=== PATIENT | female | born 1935 | race Two or more races ===

== ENCOUNTER 2017-05-20 20:17 | Inpatient (IN) | payer MEDICARE, BC ==
[~2017-05-20] VITALS: Ht 157.5 cm; Wt 56.7 kg
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
--- NOTE | 2017-05-20 20:27 | NUR ---
NEETU HEAD DOFFER AT BEDSIDE FOR EVAL.
--- NOTE | 2017-05-20 20:40 | NUR ---
GRINDER WATCH PARTS AT BEDSIDE FOR BLOOD DRAW.
[2017-05-20 21:13] LABS: CALCIUM, SERUM 9.6 mg/dL (8.5-10.1); CARBON DIOXIDE 28 mmol/L (21-32); CHLORIDE 113 mmol/L (98-107); CREATININE 1.1 mg/dL (0.6-1.3); GLUCOSE 109 mg/dL (74-106); POTASSIUM 4.1 mmol/L (3.5-5.1); SODIUM SERUM 150 mmol/L (136-145); UREA NITROGEN, BLOOD 20 mg/dL (7-18)
[2017-05-20 21:18] LABS: BASOPHILS # (AUTO) 0.1 /CMM (0.0-0.2); BASOPHILS % (AUTO) 2.5 % (0.0-2.0); EOSINOPHILS # (AUTO) 0.1 /CMM (0.0-0.7); EOSINOPHILS % (AUTO) 2.1 % (0.0-6.0); HEMATOCRIT 35 % (33-45); HEMOGLOBIN 11.2 g/dL (11.5-14.8); LYMPHOCYTES % (AUTO) 22.6 % (20.0-44.0); MEAN CORPUSCULAR HEMOGLOBIN 29 PG (26.0-33.0); MEAN CORPUSCULAR HGB CONC 32 g/dl (31.0-36.0); MEAN CORPUSCULAR VOLUME 89 fL (82-100); MONOCYTES # (AUTO) 0.4 /CMM (0.1-1.30); MONOCYTES % (AUTO) 9.5 % (2.0-12.0); NEUTROPHILS # (AUTO) 2.9 /CMM (1.8-8.9); NEUTROPHILS % (AUTO) 63.3 % (43.0-81.0); PLATELET COUNT (AUTO) 300 /CMM (150-450); RDW COEFFICIENT OF VARIATION 14.1 (11.5-15.0); WHITE BLOOD COUNT (AUTO) 4.5 K/uL (4.3-11.0)
--- NOTE | 2017-05-20 21:27 | NUR ---
CALLED STEVE CLINICIAN FOR EVAL. ETA 45 MINUTES
[2017-05-20 21:47] LABS: APPEARANCE,URINE CLEAR (CLEAR); BILIRUBIN,URINE NEGATIVE (NEGATIVE); BLOOD, URINE NEGATIVE Ery/uL (NEGATIVE); COLOR,URINE YELLOW (YELLOW); KETONES,URINE TRACE (NEGATIVE); LEUKOCYTE ESTERASE ,URINE NEGATIVE (NEGATIVE); NITRITE, URINE NEGATIVE (NEGATIVE); PH,URINE 5.5 (5.0-8.0); PROTEIN,URINE TRACE mg/dl (NEGATIVE); UGLUCOSE NEGATIVE (NEGATIVE); UROBILINOGEN,URINE 0.2 EU/dL (0.2)
[2017-05-20 21:51] LABS: ALCOHOL, BLOOD < 3 mg/dL (0-0); THYROID STIMULATING HORMONE 1.057 uIU/mL (0.358-3.74)
[2017-05-20 22:05] LABS: BACTERIA,URINE Rare /HPF (None Seen); RBC,URINE 0-2 /HPF (0-2); SQUAMOUS EPITHELIAL CELL,UR Few /HPF (None Seen); WBC,URINE 0-2 /HPF (0-3)
[2017-05-20] MEDS ORDERED: RISP1TAB7 PO (23:46)
[2017-05-20] MEDS ORDERED: QUET50TA PO (23:46)
--- NOTE | 2017-05-20 23:50 | NUR ---
REPORT GIVEN TO YOLY. PT AWAITING TRANSFER TO FLOOR.
[2017-05-21 01:00] VITALS: BP 134/79
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
[2017-05-21 08:00] VITALS: BP 149/94
[2017-05-21 08:12] LABS: CHOLESTEROL 165 mg/dL (<200); HDL CHOLESTEROL 69 mg/dL (40-60); LDL 90 mg/dL (0-99); TRIGLYCERIDES 65 mg/dL (30-150)
[2017-05-21] MEDS ORDERED: MAG HYDROX/AL HYDROX/SIMETH 30 ML UDC PO PRN (08:30)
[2017-05-21] MEDS ORDERED: ACETAMINOPHEN 325 MG TABLET PO PRN (08:30)
[2017-05-21] MEDS ORDERED: MAGNESIUM HYDROXIDE 30 ML UDC PO PRN (08:30)
[2017-05-21] MEDS ORDERED: TEMAZEPAM 7.5 MG CAPSULE PO PRN (08:30)
[2017-05-21] MEDS ORDERED: LORAZEPAM 0.5 MG TABLET PO PRN (08:30)
[2017-05-21] MEDS: QUETIAPINE FUMARATE 25 MG TABLET PO SCH ×2 (11:30→16:54)
--- NOTE | 2017-05-21 13:33 | NUR ---
GPS RN NOTES/ PATIENT REFUSED SEROQUEL PRESCRIBED TO BE TAKEN, EXPLAINED IMPORTANT OF TAKING AND GIVEN HAND OUT, CONTINUED MONITORING.
[2017-05-21 16:15] VITALS: BP 131/76
[2017-05-21 20:30] VITALS: BP 128/73
[2017-05-22 08:00] VITALS: BP 133/83
[2017-05-22] MEDS: QUETIAPINE FUMARATE 25 MG TABLET PO SCH ×3 (09:00→17:00)
[2017-05-22 16:00] VITALS: BP 140/80
[2017-05-22 21:01] VITALS: BP 142/87
--- NOTE | 2017-05-23 07:08 | NUR ---
pt is awake,no s/s of acute distress noted.pt slept 8 hours throughout NOC shift.
[2017-05-23 08:00] VITALS: BP 137/91
[2017-05-23] MEDS: QUETIAPINE FUMARATE 25 MG TABLET PO SCH ×2 (08:44→17:00)
[2017-05-23 16:00] VITALS: BP 146/91
[2017-05-23 20:24] VITALS: BP 121/79
[2017-05-24 07:04] LABS: BASOPHILS % (AUTO) 0.7 % (0.0-2.0); EOSINOPHILS # (AUTO) 0.2 /CMM (0.0-0.7); EOSINOPHILS % (AUTO) 5.7 % (0.0-6.0); HEMATOCRIT 39 % (33-45); HEMOGLOBIN 12.8 g/dL (11.5-14.8); LYMPHOCYTES # (AUTO) 1.4 /CMM (0.8-4.8); MEAN CORPUSCULAR HEMOGLOBIN 29 PG (26.0-33.0); MEAN CORPUSCULAR HGB CONC 33 g/dl (31.0-36.0); MEAN CORPUSCULAR VOLUME 88 fL (82-100); MONOCYTES # (AUTO) 0.4 /CMM (0.1-1.30); MONOCYTES % (AUTO) 14.2 % (2.0-12.0); NEUTROPHILS % (AUTO) 34.4 % (43.0-81.0); PLATELET COUNT (AUTO) 282 /CMM (150-450); RDW COEFFICIENT OF VARIATION 15.2 (11.5-15.0); RED BLOOD CELL COUNT(AUTO) 4.49 MIL/uL (4.0-5.2)
[2017-05-24 07:20] LABS: CALCIUM, SERUM 9.3 mg/dL (8.5-10.1); CARBON DIOXIDE 28 mmol/L (21-32); CHLORIDE 106 mmol/L (98-107); CREATININE 0.9 mg/dL (0.6-1.3); GLUCOSE 94 mg/dL (74-106); PHOSPHORUS 3.3 mg/dL (2.5-4.9); POTASSIUM 3.9 mmol/L (3.5-5.1); SODIUM SERUM 142 mmol/L (136-145); UREA NITROGEN, BLOOD 16 mg/dL (7-18)
[2017-05-24 07:28] LABS: THYROID STIMULATING HORMONE 1.615 uIU/mL (0.358-3.74)
[2017-05-24 08:00] VITALS: BP 149/82
[2017-05-24] MEDS: QUETIAPINE FUMARATE 25 MG TABLET PO SCH ×2 (09:00→15:57)
--- NOTE | 2017-05-24 15:19 | NUR ---
Initial Discharge Note: Patient she lives home alone [address] [place] [address] ([phone]). picking table worker spoke to patient's daughter Mela sanford ([phone]/ [phone]) who confirmed that patient was living at home alone. However, patient's daughter stated that she would like patient to live with her or go to an assisted living. picking table worker will help form a safe and proper discharge.
--- NOTE | 2017-05-24 15:57 | NUR ---
Group Note: Patient in group stated, "I want to go home, I don;t know why I have to stay in here." Patient was irritable but was participating in group and asking several questions regarding her discharge plan. Patient remains irritable but was able to understand that she could not leave today and that the psychiatrist will decide whenshe is ready for discharge. smooth and burr worker composites will continue to discuss discharge planning with the patient and will discuss her mood with the psychiatrist.
[2017-05-24 16:21] VITALS: BP 137/86
[2017-05-24 20:00] VITALS: BP 138/65
[2017-05-24 20:42] VITALS: BP 138/65
[2017-05-25 08:00] VITALS: BP 126/80
[2017-05-25] MEDS: QUETIAPINE FUMARATE 25 MG TABLET PO SCH ×2 (08:07→17:03)
--- NOTE | 2017-05-25 13:50 | NUR ---
called down for patient for ct, nurse will call when ready
[2017-05-25 16:00] VITALS: BP 152/73
[2017-05-25 20:00] VITALS: BP 136/80
[2017-05-25] MEDS: DONEPEZIL 5 MG TABLET PO SCH (21:52)
[2017-05-26 08:00] VITALS: BP 148/88
[2017-05-26] MEDS: QUETIAPINE FUMARATE 25 MG TABLET PO SCH ×2 (08:52→16:48)
--- NOTE | 2017-05-26 12:36 | NUR ---
suction worker spoke to patient's daughter Mela sanford ([phone]/ [phone]) to inform her that patient will be discharged tomorrow. Patient's daughter was unhappy and stated that she had spoken to her automatic coil machine operator who suggested patient be conserved. suction worker suggested to Mela that if she is concerned about patient's finances she can pursue a probate conservatorship upon patient's discharge. Patient's daughter stated that it is negligence to discharge patient after a few days. suction worker informed patient's daughter that patient no longer meets criteria to be in the geriatric pysch unit and assigned psychiatrist Dr. Harris believes patient is ready for discharge and should be picked up tomorrow. suction worker discussed case with utility mechanic supervisor Poly Scott ext. [phone].
--- NOTE | 2017-05-26 14:19 | NUR ---
carry in worker spoke to patient's daughter Mela sanford ([phone]/ [phone]) who appeared more calm and agreeable with the discharge plan. Mela stated that she would pick- up patient tomorrow at 6:00Pm. carry in worker provided Mela with the phone number to [facility] ([phone]).
--- NOTE | 2017-05-26 14:22 | NUR ---
rattan worker spoke to patient regarding placement (SNF or Assisted Living Facility) patient stated that she could not make that decision right now and would think about it in the future. rattan worker will follow-up with family.
[2017-05-26 16:05] VITALS: BP 135/90
--- NOTE | 2017-05-26 16:28 | NUR ---
Dischrge Note: Patient scheduled to be discharged tomorrow 05/26/17 and will be discharged home [address] [place] [address]. Patients daughter Mela Tanner ([phone]/ [phone]) was notified and will pick-up patient via private vehicle. Patient and patient's daughter were agreeable with the discharge plan. Patient's mood and affect are calm and appropriate. Patient denies suicidal and homicidal ideations. Patient was referred to the [facility] Department of mental health ([phone]). workers' compensation claims examiner also provided patient's daughter with the contact number to [facility] Helpline ([phone]). Facilitated info to IDT team who are in agreement with discharge arrangement. The multidisciplinary exitcare form was done, printed, signed, and given to the patient.
[2017-05-26 20:00] VITALS: BP 148/86
[2017-05-26] MEDS: DONEPEZIL 5 MG TABLET PO SCH (21:46)
[2017-05-27 08:00] VITALS: BP 149/91
--- NOTE | 2017-05-27 08:39 | NUR ---
DR. TIERNEY GAVE AN ORDER TO D/C HOLD AND D/C HOME. PT. WITHOUT DISTRESS, DENIES SUICIDAL AND HOMICIDAL AND TO FOLLOW UP WITH PSYCH AND MEDICAL DOCTORS. DR. KENNEY MADE AWARE OF THE DISCHARGE AND WROTE A PRESCRIPTIONS. DAUGHTER CASTILLO MILLARD MADE AWARE OF THE DISCHARGE AND SAID SHE WILL COME TO ARTIST AND REPERTOIRE MANAGER THE PT.
[2017-05-27] MEDS: QUETIAPINE FUMARATE 25 MG TABLET PO SCH ×2 (09:30→18:19)
[2017-05-27 16:00] VITALS: BP 112/74
--- NOTE | 2017-05-27 19:02 | NUR ---
GPS DISCHARGE NOTES/ PATIENT D/C AT THIS TIME GOING HOME. PATIENT A/O X3. MED COMPLIMENT, V/S STABLE, MEDICALLY STABLE, NO C/O PAIN. PATIENT DENIED SI/HI. AVH AT THIS TIME. MED RECONCILIATION, AND DISCHARGE ORDER REVIEWED AND EXPLAINED TO. REPORT GIVEN PATIENT, AND DAUGHTER NAME MOI. DAUGHTER VERBALIZED UNDERSTANDING. BELONGING RETURNED BACK TO THE PATIENT, PATIENT SIGN PAPERWORK, BUT REFUSED PICTURE TO BE TAKEN. PATIENT CONTINUOUS CONVEYOR SCREEN DRIER BY DAUGHTER PHONE # [phone]. ESCORTED PATIENT TO THE LOBBY FOR SAFETY.
== END 2017-05-27 19:02 | disposition home or self-care (01) | DRG 885 ==
LOC: ER 20:20 → GPS 05-21 00:44
PROVIDERS: ADMIT Psychiatry & Neurology Psychiatry; ATTEND Psychiatry & Neurology Psychiatry
DX: F29 Unspecified psychosis not due to a substance or known physiological condition (principal); N17.0 Acute kidney failure with tubular necrosis; E87.0 Hyperosmolality and hypernatremia; G93.40 Encephalopathy, unspecified; F03.90 Unspecified dementia, unspecified severity, without behavioral disturbance, psychotic disturbance, mood disturbance, and anxiety; D64.9 Anemia, unspecified; Z91.19 Patient's noncompliance with other medical treatment and regimen
CPT/HCPCS: 36415; 70450-TC; 80048-TC; 80061-TC; 81000-TC; 82746; 83735-TC; 84100-TC; 84443-TC; 85025-TC; 86592; 87081-TC; A4606; G0480; Z7610

== ENCOUNTER 2017-06-19 12:27 | Inpatient (IN) | payer MEDICARE, BC ==
[~2017-06-19] VITALS: Ht 157.5 cm; Wt 54.0 kg
[~2017-06-19 12:27] MED LIST: QUET50TA PO
--- NOTE | 2017-06-19 12:49 | NUR ---
URINE SAMPLE OBTAINED, SENT.
[2017-06-19 12:55] LABS: BASOPHILS # (AUTO) 0.1 /CMM (0.0-0.2); BASOPHILS % (AUTO) 1.3 % (0.0-2.0); EOSINOPHILS # (AUTO) 0.2 /CMM (0.0-0.7); EOSINOPHILS % (AUTO) 3.9 % (0.0-6.0); HEMATOCRIT 39 % (33-45); HEMOGLOBIN 12.6 g/dL (11.5-14.8); LYMPHOCYTES # (AUTO) 1.2 /CMM (0.8-4.8); LYMPHOCYTES % (AUTO) 24.6 % (20.0-44.0); MEAN CORPUSCULAR HEMOGLOBIN 28 PG (26.0-33.0); MEAN CORPUSCULAR HGB CONC 32 g/dl (31.0-36.0); MEAN CORPUSCULAR VOLUME 87 fL (82-100); MONOCYTES # (AUTO) 0.6 /CMM (0.1-1.30); NEUTROPHILS # (AUTO) 2.9 /CMM (1.8-8.9); NEUTROPHILS % (AUTO) 58.2 % (43.0-81.0); PLATELET COUNT (AUTO) 304 /CMM (150-450); RDW COEFFICIENT OF VARIATION 15.7 (11.5-15.0); RED BLOOD CELL COUNT(AUTO) 4.55 MIL/uL (4.0-5.2)
[2017-06-19 12:57] LABS: APPEARANCE,URINE CLEAR (CLEAR); BILIRUBIN,URINE NEGATIVE (NEGATIVE); BLOOD, URINE NEGATIVE Ery/uL (NEGATIVE); COLOR,URINE YELLOW (YELLOW); KETONES,URINE NEGATIVE (NEGATIVE); LEUKOCYTE ESTERASE ,URINE NEGATIVE (NEGATIVE); NITRITE, URINE NEGATIVE (NEGATIVE); PROTEIN,URINE NEGATIVE (NEGATIVE); UGLUCOSE NEGATIVE (NEGATIVE); UROBILINOGEN,URINE 0.2 EU/dL (0.2)
[2017-06-19 13:05] LABS: CALCIUM, SERUM 9.1 mg/dL (8.5-10.1); CARBON DIOXIDE 33 mmol/L (21-32); CHLORIDE 106 mmol/L (98-107); CREATININE 1.1 mg/dL (0.6-1.3); GLUCOSE 136 mg/dL (74-106); POTASSIUM 3.7 mmol/L (3.5-5.1); SODIUM SERUM 142 mmol/L (136-145); UREA NITROGEN, BLOOD 15 mg/dL (7-18)
[2017-06-19 13:11] LABS: ALANINE AMINOTRANSFERASE 18 U/L (12-78); ALBUMIN 3.5 g/dL (3.4-5.0); ALCOHOL, BLOOD < 3 mg/dL (0-0); ALKALINE PHOSPHATASE 152 U/L (46-116); ASPARTATE AMINOTRANSFERASE 28 U/L (15-37); BILIRUBIN,TOTAL 0.3 mg/dL (0.2-1.0); TOTAL PROTEIN, SERUM 8.2 g/dL (6.4-8.2)
[2017-06-19 13:22] LABS: ACETAMINOPHEN 0 ug/ml (10-30)
--- NOTE | 2017-06-19 14:33 | NUR ---
REPORT GIVEN TO ALIRIO RUIZ FOR GPS [id number]
[2017-06-19] MEDS ORDERED: DONE5TAB34 PO (14:42)
[2017-06-19] MEDS ORDERED: QUET25TA PO (14:42)
--- NOTE | 2017-06-19 15:30 | NUR ---
MHV-GO-BCARP: PT IS 82 YEARS OLD YEARS FEMALE ADMITTED ON 5150 FOR GD. ACCORDING TO THE HOLD, PT IS NON-COMPLIANT, DELUSIONAL, PARANOIA, AGITATED. PT HAS HISTORY OF HOSPITALIZATION AND PSYCHOSIS. PT UNABLE TO CARE FOR SELF. PT HAS HX OF HYPERNATREMIA, MILD ANEMIA, VASOMOTOR NEPHROPATHY. PT IS AMBULATORY, SELF-CARE, CONTINENT. PROVIDED WITH PT'S RIGHT HAND BOOK. DISCUSS MEAL TIMES AND FRESH AIR BREAKS. BELONGINGS STORED AND DOCUMENTED. ALL PAPERWORK AND COMPUTER DOCUMENTATION COMPLETED. WILL ENDORSE TO INCOMING NURSE TO DOUBLE CHECK ALL COMPUTER DOCUMENTATION AND PAPERWORK. SKIN ASSESSMENT DONE
[2017-06-19 15:41] VITALS: BP 140/77
[2017-06-19 19:57] VITALS: BP 123/52
[2017-06-20 06:47] LABS: ALANINE AMINOTRANSFERASE 16 U/L (12-78); ALBUMIN 3.3 g/dL (3.4-5.0); ALKALINE PHOSPHATASE 138 U/L (46-116); ASPARTATE AMINOTRANSFERASE 28 U/L (15-37); BILIRUBIN,TOTAL 0.4 mg/dL (0.2-1.0); CALCIUM, SERUM 9.3 mg/dL (8.5-10.1); CARBON DIOXIDE 30 mmol/L (21-32); CHLORIDE 108 mmol/L (98-107); GLUCOSE 101 mg/dL (74-106); POTASSIUM 4.3 mmol/L (3.5-5.1); SODIUM SERUM 141 mmol/L (136-145); TOTAL PROTEIN, SERUM 7.7 g/dL (6.4-8.2); UREA NITROGEN, BLOOD 15 mg/dL (7-18)
[2017-06-20 08:17] VITALS: BP 134/75
[2017-06-20 15:36] VITALS: BP 142/82
[2017-06-20 15:51] VITALS: BP 142/82
--- NOTE | 2017-06-20 16:46 | NUR ---
Initial Discharge Note: Patient she lives at home with daughter [address] [place] [address] and her telephone number is . Home Furnishings Sales Representative will contact patient's niece and or other family/friends to confirm patients address and living situation. Home Furnishings Sales Representative will help form a safe and proper discharge.
[2017-06-20 19:26] VITALS: BP 114/65
[2017-06-21 08:00] VITALS: BP 146/77
--- NOTE | 2017-06-21 15:22 | NUR ---
ISAIAS Ortega spoke with pt's daughter, Mela Tannre ([phone]/ [phone]). Daughter expressed over her mom's discharge and after-care. Daughter would like to speak with psychiatrist before mother's discharge. Daughter is open to the idea of mother going back home if she is stable. ISAIAS will follow up with MD and will be in touch with Mela.
[2017-06-21 16:00] VITALS: BP 101/55
[2017-06-21 19:30] VITALS: BP 134/85
[2017-06-22 08:00] VITALS: BP 146/92
[2017-06-22 16:02] VITALS: BP 100/64
[2017-06-22 19:48] VITALS: BP 108/58
[2017-06-22 20:09] VITALS: BP 108/58
[2017-06-23 07:57] VITALS: BP 147/88
[2017-06-23 16:00] VITALS: BP 101/55
[2017-06-23 20:00] VITALS: BP 151/92
--- NOTE | 2017-06-24 07:17 | NUR ---
Up most of night going to br,no distress noted
[2017-06-24 08:00] VITALS: BP 141/94
[2017-06-24 16:00] VITALS: BP 147/80
[2017-06-24 20:00] VITALS: BP 119/60
[2017-06-25 07:51] VITALS: BP 146/91
[2017-06-25 16:00] VITALS: BP 122/67
[2017-06-25 19:45] VITALS: BP 141/79
[2017-06-26 08:00] VITALS: BP 135/80
--- NOTE | 2017-06-26 14:03 | NUR ---
social worker faxed initial review packet to [facility] [address] [place] [address] (fax: [phone]/ ). social worker will follow-up.
--- NOTE | 2017-06-26 14:06 | NUR ---
SW spoke with pt's daughter, Mela Tanner ([phone]/ [phone]) who stated that she would like to have her mother live with her while she looks for an assisted living. line worker will following-up.
[2017-06-26 16:00] VITALS: BP 127/79
[2017-06-26 20:02] VITALS: BP 129/61
[2017-06-27 08:05] VITALS: BP 143/83
[2017-06-27 15:49] VITALS: BP 128/79
[2017-06-27 20:16] VITALS: BP 143/87
[2017-06-28 08:00] VITALS: BP 146/90
[2017-06-28 16:36] VITALS: BP 130/80
[2017-06-28 19:51] VITALS: BP 108/52
[2017-06-28 23:00] VITALS: BP 109/60
[2017-06-29 08:03] VITALS: BP 126/77
--- NOTE | 2017-06-29 08:59 | NUR ---
DR. TIERNEY GAVE AN ORDER TO D/C HOLD AND D/C HOME TODAY. PT. WITHOUT DISTRESS, DENIES SUICIDAL AND HOMICIDAL AND TO FOLLOW UP WITH PSYCH AND MEDICAL DOCTORS.
--- NOTE | 2017-06-29 09:27 | NUR ---
Discharge Note: Patient will be discharged home [address] [place] [address]. Patients daughter Mela Tanner ([phone]/ [phone]) was notified and will pick-up patient via private vehicle. Patient and patient's daughter were agreeable with the discharge plan. Patient's mood and affect are appropriate. Patient denies suicidal and homicidal ideations. Patient was referred to the [facility] Department of mental health ([phone]). repack room worker also provided patient's daughter with the contact number to Access [facility] Helpline ([phone]). Facilitated info to IDT team who are in agreement with discharge arrangement. The multidisciplinary exitcare form was done, printed, signed, and given to the patient.
[2017-06-29 16:00] VITALS: BP 129/82
--- NOTE | 2017-06-29 17:24 | NUR ---
GPS/RN PATIENT CLEARED FOR DISCHARGE HOME BY DR TIERNEY AND REMOTE CONTROL MIRROR INSTALLER FATUMA. MEDICATIONS RECONCILED, D/C PACKET, AFTER CARE PLAN AND PRESCRIPTIONS EXPLAINED TO PATIENT AND DAUGHTER CASTILLO, VERBALIZED UNDERSTANDING. BELONGINGS RETURNED AND SIGNED FOR BY PATIENT, DAUGHTER ALSO CHECKED BELONGINGS. PATIENT DENIES SI/HI/AH AT TIME OF DISCHARGE, PSYCHIATRIC TREATMENT PLANS MET, LEFT UNIT CALM, COOPERATIVE, NO AGITATION, NO DISTRESS WITH DAUGHTER AND STAFF AT SIDE.
== END 2017-06-29 17:25 | disposition home or self-care (01) | DRG 885 ==
LOC: ER 12:30 → GPS 14:37
PROVIDERS: ADMIT Psychiatry & Neurology Psychiatry; ATTEND Internal Medicine
DX: F29 Unspecified psychosis not due to a substance or known physiological condition (principal); F03.90 Unspecified dementia, unspecified severity, without behavioral disturbance, psychotic disturbance, mood disturbance, and anxiety; F41.9 Anxiety disorder, unspecified; Z73.6 Limitation of activities due to disability
CPT/HCPCS: 36415; 80048-TC; 80053-TC; 80076-TC; 80305; 81000-TC; 85025-TC; 87081-TC; A4606; G0480; Z7610

== ENCOUNTER 2018-11-22 13:48 | Inpatient (IN) | payer BC, MEDICARE, OTHER ==
[~2018-11-22] VITALS: Ht 157.5 cm; Wt 57.6 kg
--- NOTE | 2018-11-22 13:48 | NUR ---
PT NIESHA FROM HOME FOR AMS, BIZARRE BEHAVIOR, PT AAOX2-3, PT ON MONITOR ,VSS, PENDING ER PROVIDER HANS
[2018-11-22] MEDS ORDERED: AMLO2.5T4 PO (14:05)
[2018-11-22] MEDS ORDERED: OLAN2.5T3 PO (14:05)
[2018-11-22] MEDS ORDERED: DIVA-78 PO (14:05)
--- NOTE | 2018-11-22 14:58 | NUR ---
VMWARE ADMINISTRATOR CALLED TO SPEAK TO PT
[2018-11-22] MEDS ORDERED: ACETAMINOPHEN ES 500 MG TABLET PO ONE (15:00)
[2018-11-22] MEDS ORDERED: ACETAMINOPHEN ES 500 MG TABLET ONE (15:10)
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
[2018-11-22 16:01] LABS: BASOPHILS % (AUTO) 1.2 % (0.0-2.0); EOSINOPHILS % (AUTO) 3.3 % (0.0-6.0); HEMATOCRIT 34 % (33-45); LYMPHOCYTES # (AUTO) 1.6 /CMM (0.8-4.8); LYMPHOCYTES % (AUTO) 38.5 % (20.0-44.0); MEAN CORPUSCULAR HGB CONC 32 g/dl (31.0-36.0); MEAN CORPUSCULAR VOLUME 90 fL (82-100); MONOCYTES # (AUTO) 0.6 /CMM (0.1-1.30); MONOCYTES % (AUTO) 13.2 % (2.0-12.0); NEUTROPHILS # (AUTO) 1.8 /CMM (1.8-8.9); NEUTROPHILS % (AUTO) 43.8 % (43.0-81.0); PLATELET COUNT (AUTO) 153 /CMM (150-450); RED BLOOD CELL COUNT(AUTO) 3.79 MIL/uL (4.0-5.2); WHITE BLOOD COUNT (AUTO) 4.2 K/uL (4.3-11.0)
[2018-11-22 16:08] LABS: CALCIUM, SERUM 9.1 mg/dL (8.5-10.1); CARBON DIOXIDE 29 mmol/L (21-32); CHLORIDE 110 mmol/L (98-107); GLUCOSE 93 mg/dL (74-106); POTASSIUM 4.1 mmol/L (3.5-5.1); SODIUM SERUM 145 mmol/L (136-145); UREA NITROGEN, BLOOD 14 mg/dL (7-18)
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
[2018-11-22 16:21] LABS: ALANINE AMINOTRANSFERASE 9 U/L (12-78); ALBUMIN 2.9 g/dL (3.4-5.0); ALCOHOL, BLOOD < 3 mg/dL (0-0); ALKALINE PHOSPHATASE 107 U/L (46-116); ASPARTATE AMINOTRANSFERASE 21 U/L (15-37); BILIRUBIN,DIRECT 0.1 mg/dL (0.0-0.2); BILIRUBIN,TOTAL 0.2 mg/dL (0.2-1.0); TOTAL PROTEIN, SERUM 6.6 g/dL (6.4-8.2)
[2018-11-22 16:25] LABS: APPEARANCE,URINE Clear (CLEAR); BILIRUBIN,URINE Negative (NEGATIVE); BLOOD, URINE Trace-intact Ery/uL (NEGATIVE); COLOR,URINE Yellow (YELLOW); KETONES,URINE Trace (NEGATIVE); LEUKOCYTE ESTERASE ,URINE Moderate (NEGATIVE); NITRITE, URINE Negative (NEGATIVE); PROTEIN,URINE 30 mg/dl (NEGATIVE); UGLUCOSE Negative (NEGATIVE); UROBILINOGEN,URINE 0.2 EU/dL (0.2)
[2018-11-22 16:44] LABS: BACTERIA,URINE Few /HPF (None Seen); SQUAMOUS EPITHELIAL CELL,UR Few /HPF (None Seen)
--- NOTE | 2018-11-22 16:45 | NUR ---
[facility] RISK ASSESSOR CALLED; ON THE WAY
--- NOTE | 2018-11-22 17:13 | NUR ---
HOUSE SUP CALLED FOR GPS BED
--- NOTE | 2018-11-22 17:21 | NUR ---
BED 218-A GPS
[2018-11-22] MEDS ORDERED: NITROFURANTOIN/NITROFURAN MAC 100 MG CAPSULE PO ONE (18:00)
[2018-11-22] MEDS ORDERED: NITROFURANTOIN/NITROFURAN MAC 100 MG CAPSULE ONE (18:29)
--- NOTE | 2018-11-22 20:01 | NUR ---
report given to novem gps nurse for ayde
--- NOTE | 2018-11-22 21:00 | NUR ---
TRANSPORTED TO GPS VIA GURNEY WITH EMT
[2018-11-22 21:05] VITALS: BP 128/75
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
[2018-11-22] MEDS ORDERED: TEMAZEPAM 7.5 MG CAPSULE PO PRN (22:30)
[2018-11-22] MEDS ORDERED: MAGNESIUM HYDROXIDE 30 ML UDC PO PRN (22:30)
[2018-11-22] MEDS ORDERED: ACETAMINOPHEN 325 MG TABLET PO PRN (22:30)
[2018-11-22] MEDS ORDERED: MAG HYDROX/AL HYDROX/SIMETH 30 ML UDC PO PRN (22:30)
--- NOTE | 2018-11-23 07:05 | NUR ---
GPS-RN NOTES: LEFT VOICE MESSAGE TO CASTILLO MILLARD PT'S DAUGHTER ([phone]) REGARDING PT'S ADMISSION. AWAITING FOR CALL BACK. WILL ENDORSE TO THE DAY SHIFT NURSE FOR CONTINUITY OF CARE.
[2018-11-23 08:00] VITALS: BP 129/73
[2018-11-23] MEDS: NITROFURANTOIN/NITROFURAN MAC 100 MG CAPSULE PO SCH ×2 (08:51→20:48)
[2018-11-23] MEDS: AMLODIPINE BESYLATE 2.5 MG TABLET PO SCH (08:52)
--- NOTE | 2018-11-23 11:32 | NUR ---
ISAIAS spoke with pts daughter Mela [phone] regarding pts discharge plan and also to request conservatorship/DPOA paperwork. Daughter stated that she will bring paperwork Monday11/24/18 to the nurses station. Daughter also stated that pt will return home with her once stable for discharge. Daughter informed SW that she is currently looking for an outside psychiatrist to continue treatment once discharged and also inquired about additional resources that the family can receive to better assist pt. ISAIAS explained that pts current HMO is very strict and limits resources for pts is they do not meet criteria. ISAIAS suggested daughter dis-enroll pt from [employer] and enroll pt in straight Medicare as her primary insurance. SW explained that Medicare is able to cover detention placement in the future and also cover HOME HEALTH. Daughter agreed and stated that pts behaviors are becoming difficult to manage and will need a facility in the near future.
--- NOTE | 2018-11-23 12:15 | NUR ---
INITIAL DISCHARGE NOTE: Per pts Daughter Mela [phone], pt will return home [address] [facility] [address] with daughter once stable for discharge. SW will help form a safe and proper discharge in collaboration with and RADHA OSBORN.
[2018-11-23 16:00] VITALS: BP 105/59
[2018-11-23 20:00] VITALS: BP 127/67
[2018-11-23] MEDS: RIVASTIGMINE TARTRATE 1.5 MG CAPSULE PO SCH (20:48)
[2018-11-23] MEDS: LORAZEPAM 0.5 MG TABLET PO PRN (20:49)
--- NOTE | 2018-11-23 23:04 | NUR ---
RN NOTES: AT 1900 UPON ENDORSEMENT PATIENT IS AMBULATORY AROUND THE TOBIN A/OX1 WITH PERIODS OF CONFUSION, SHE WANTS TO GO HOME, ORIENTED TO UNIT AND STAFF. -1999 STARTED TO GET AGITATED AND SCREAMING SHE WAS INSISTING TO GO OUT AND SHE WANTS TO GO HOME LOOKING FOR HER DAUGHTER, EXPLAINED TO HER, DAUGHTER CALLED AND WILL COME TO VISIT HER TOMORROW, REDIRECTED. -2048 HER AGITATION INCREASED AND STARTED PACING MORE, ATIVAN PRN GIVEN AN KEEP ON CLOSE VISUAL CHECK. -2199 SHE IS STILL AWAKE SITTING ON THE CHAIR TALKING WITH ANOTHER PATIENT BUT STARTING TO LOOK SLEEPY, DIRECTOR UTILIZATION MANAGEMENT HELP HER TO GO BACK IN BED AT 2300 PATIENT IS IN DEEP SLEEP, LYING COMFORTABLY.
[2018-11-24 08:00] VITALS: BP 153/87
[2018-11-24] MEDS: RIVASTIGMINE TARTRATE 1.5 MG CAPSULE PO SCH ×2 (08:32→21:00)
[2018-11-24] MEDS: risperiDONE 1 MG TABLET PO SCH ×2 (08:33→16:02)
[2018-11-24] MEDS: NITROFURANTOIN/NITROFURAN MAC 100 MG CAPSULE PO SCH ×2 (08:33→21:00)
[2018-11-24] MEDS: AMLODIPINE BESYLATE 2.5 MG TABLET PO SCH (08:33)
--- NOTE | 2018-11-24 14:01 | NUR ---
GPS RN NOTE: DNP VIJAY PURCELL NOTIFIED OF PT RIGHT SWOLLEN HAND, NEW ORDER XR OF THE RIGHT HAND PLACED AND CARED OUT, WILL CONTINUE MONITORING.
--- NOTE | 2018-11-24 15:45 | NUR ---
GPS RN NOTE: DR NEGRO NOTIFIED OF PT BEHAVIOR LAST NIGHT, NO NEW ORDERS AT THIS TIME.
[2018-11-24 16:00] VITALS: BP 101/66
--- NOTE | 2018-11-24 19:28 | NUR ---
GPS RN NOTES RECEIVED ON BED A/O X1-2,ABLE TO VERBALIZED NEEDS,CLAIMED SHE WANTS THE DOOR CLOSED,SHE ANNOYED WITH NOISE AND SOUNDS.BREATHING REGULAR,CALM,MED COMPLIANT REPORT.WILL CONTINUE TO MONITOR STATUS.
[2018-11-24 20:26] VITALS: BP 120/75
[2018-11-24 20:41] VITALS: BP 120/75
--- NOTE | 2018-11-24 21:00 | NUR ---
GPS RN NOTES OFFERED MACROBID FOR UTI,REFUSED.CLAIMED " I DONT TAKE ANTIBIOTICS ".EXPLAINED RISK AND BENEFITS HE STARTED GETTING AGITATED.
[2018-11-25 08:00] VITALS: BP 125/69
[2018-11-25] MEDS: RIVASTIGMINE TARTRATE 1.5 MG CAPSULE PO SCH ×2 (09:29→20:59)
[2018-11-25] MEDS: risperiDONE 1 MG TABLET PO SCH ×2 (09:29→16:42)
[2018-11-25] MEDS: AMLODIPINE BESYLATE 2.5 MG TABLET PO SCH (09:31)
[2018-11-25] MEDS: NITROFURANTOIN/NITROFURAN MAC 100 MG CAPSULE PO SCH ×2 (09:36→20:59)
[2018-11-25 16:00] VITALS: BP 123/79
[2018-11-25 20:30] VITALS: BP 134/65
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
[2018-11-25] MEDS: LORAZEPAM 0.5 MG TABLET PO PRN (22:12)
--- NOTE | 2018-11-25 22:16 | NUR ---
GPS RN NOTES: PT. BEHAVIOR VERY ANXIOUS PARANOID , DELUSIONAL PACING IN HER ROOM, YELLING ,ATIVAN 1 MG PO PRN GIVEN , WILL CONTINUE TO MONITOR.
[2018-11-26 08:00] VITALS: BP 130/71
[2018-11-26] MEDS: NITROFURANTOIN/NITROFURAN MAC 100 MG CAPSULE PO SCH (09:34)
[2018-11-26] MEDS: AMLODIPINE BESYLATE 2.5 MG TABLET PO SCH (09:34)
[2018-11-26] MEDS: RIVASTIGMINE TARTRATE 1.5 MG CAPSULE PO SCH ×2 (09:35→20:45)
[2018-11-26] MEDS: risperiDONE 1 MG TABLET PO SCH (09:35)
--- NOTE | 2018-11-26 13:18 | NUR ---
UR NOTE: ISAIAS attempted to contact [facility] [phone] to complete clinical review however, they are currently experiencing technically difficulties and call cannot be answered at this time. ISAIAS faxed clinical review to [phone] for review.
--- NOTE | 2018-11-26 14:57 | NUR ---
UR NOTE: ISAIAS completed concurrent review with MULU case maker at [facility] [phone] who approved 3 additional days 11/27/18-11/29/18 with review due 11/29/18.
[2018-11-26 16:00] VITALS: BP 122/72
[2018-11-26 20:37] VITALS: BP 114/67
[2018-11-26] MEDS: risperiDONE 0.25 MG TABLET PO SCH (20:46)
[2018-11-27 08:00] VITALS: BP 99/63
[2018-11-27] MEDS: RIVASTIGMINE TARTRATE 1.5 MG CAPSULE PO SCH ×2 (08:26→21:48)
[2018-11-27] MEDS: risperiDONE 0.25 MG TABLET PO SCH ×2 (08:26→21:48)
[2018-11-27] MEDS: AMLODIPINE BESYLATE 2.5 MG TABLET PO SCH (08:26)
--- NOTE | 2018-11-27 13:51 | NUR ---
ISAIAS met with pts Daughter Mela [phone] and informed her pts HMO has approved coverage until 11/29/18. Daughter states that she feels pt is ready for discharge soon. ISAIAS informed her that she will contact her on Monday to confirm if Psychiatrist Dr. Dow will be discharging pt on 11/29/18. Daughter agreed.
[2018-11-27 16:00] VITALS: BP 123/73
[2018-11-27 20:17] VITALS: BP 124/67
[2018-11-28 08:00] VITALS: BP 153/90
[2018-11-28] MEDS: risperiDONE 0.25 MG TABLET PO SCH ×2 (09:32→20:48)
[2018-11-28] MEDS: RIVASTIGMINE TARTRATE 1.5 MG CAPSULE PO SCH ×2 (09:32→20:47)
[2018-11-28] MEDS: AMLODIPINE BESYLATE 2.5 MG TABLET PO SCH (09:32)
--- NOTE | 2018-11-28 15:06 | NUR ---
ISAIAS contacted pts Daughter Mela [phone] and left voicemail informing her of pts discharge tomorrow 11/29/18.
[2018-11-28 16:00] VITALS: BP 113/60
[2018-11-28 19:52] VITALS: BP 113/69
[2018-11-29 08:00] VITALS: BP 117/64
--- NOTE | 2018-11-29 08:35 | NUR ---
SW received a voicemail from pts Daughter Mela [phone] stating she will be coming on this present day to pick pt up between 3:30-4:00pm.
[2018-11-29] MEDS: AMLODIPINE BESYLATE 2.5 MG TABLET PO SCH (09:00)
[2018-11-29] MEDS: RIVASTIGMINE TARTRATE 1.5 MG CAPSULE PO SCH (09:14)
[2018-11-29] MEDS: risperiDONE 0.25 MG TABLET PO SCH (09:15)
[2018-11-29 16:00] VITALS: BP 101/59
--- NOTE | 2018-11-29 16:19 | NUR ---
DISCHARGE NOTE: Pt will be discharged at 4:30pm via private vehicle home to [address] [place] [address]. Pts daughter Mela [phone] will transport pt home. Pts mood was euthymic with congruent affect. Pt denied visual/auditory hallucinations and denied suicidal/homicidal ideations. Pts daughter will followup with Psychiatrist: Dr. Brennan Avila Address: [address] [place] [address] and schedule a follow up appointment. SW left voicemail for appointment and faxed KARLEE paperwork to [phone]. Daughter will also schedule follow up appointment with Biological Science Technician Fish: Dr. Bethel Esteban [address] [address], [place] [address] [phone]. The multidisciplinary exitcare form was done, printed, signed, and given to the patient.
--- NOTE | 2018-11-29 16:24 | NUR ---
PATIENT DISCHARGED TO HOME, PICKED UP BY DAUGHTER, AMBULATORY, OFFERED WHEELCHAIR ASSISTANCE BUT PATIENT REFUSED, PATIENT DENIES SI/HI, NO SOB, NO ACUTE DISTRESS, BREATHING EVEN AND UNLABORED, NO S/S OF PAIN AND DISCOMFORT. DISCHARGED
== END 2018-11-29 16:23 | disposition home or self-care (01) | DRG 885 ==
LOC: ER 13:55 → GPS 20:40
PROVIDERS: ADMIT Psychiatry & Neurology Psychiatry; ATTEND Psychiatry & Neurology Psychiatry
DX: F29 Unspecified psychosis not due to a substance or known physiological condition (principal); G93.41 Metabolic encephalopathy; N39.0 Urinary tract infection, site not specified; E44.0 Moderate protein-calorie malnutrition; F41.9 Anxiety disorder, unspecified; F03.90 Unspecified dementia, unspecified severity, without behavioral disturbance, psychotic disturbance, mood disturbance, and anxiety; D63.8 Anemia in other chronic diseases classified elsewhere; I10 Essential (primary) hypertension; W13.4XXA Fall from, out of or through window, initial encounter; Y93.39 Activity, other involving climbing, rappelling and jumping off; Y92.9 Unspecified place or not applicable; Z95.0 Presence of cardiac pacemaker; Z88.0 Allergy status to penicillin; Z79.899 Other long term (current) drug therapy
CPT/HCPCS: 36415; 73030-TC; 73130-TC; 80048-TC; 80076-TC; 80305; 81000-TC; 85025-TC; 87081-TC; 87086-TC; G0480

== ENCOUNTER 2018-12-01 11:54 | Inpatient (IN) | payer OTHER ==
[~2018-12-01] VITALS: Ht 157.5 cm; Wt 54.9 kg
[~2018-12-01 11:54] MED LIST changes: +AMLO2.5T4 PO; +DIVA-78 PO; +OLAN2.5T3 PO; -QUET50TA PO
--- NOTE | 2018-12-01 11:54 | NUR ---
PT BIB DAUGHTER; PT WAS WANDERING AROUND THE NEIGHBORHOOD'; PT AAOX2-3 PT ON MONITOR, VSS, NAD NOTED, PENDING ER PROVIDER EVAL
[2018-12-01 12:26] LABS: BASOPHILS % (AUTO) 0.9 % (0.0-2.0); EOSINOPHILS % (AUTO) 6.8 % (0.0-6.0); HEMATOCRIT 35 % (33-45); HEMOGLOBIN 11.6 g/dL (11.5-14.8); LYMPHOCYTES # (AUTO) 1.6 /CMM (0.8-4.8); LYMPHOCYTES % (AUTO) 38.9 % (20.0-44.0); MEAN CORPUSCULAR HGB CONC 33 g/dl (31.0-36.0); MEAN CORPUSCULAR VOLUME 91 fL (82-100); MONOCYTES # (AUTO) 0.5 /CMM (0.1-1.30); MONOCYTES % (AUTO) 12.5 % (2.0-12.0); NEUTROPHILS # (AUTO) 1.7 /CMM (1.8-8.9); NEUTROPHILS % (AUTO) 40.9 % (43.0-81.0); PLATELET COUNT (AUTO) 171 /CMM (150-450); RED BLOOD CELL COUNT(AUTO) 3.87 MIL/uL (4.0-5.2); WHITE BLOOD COUNT (AUTO) 4.2 K/uL (4.3-11.0)
[2018-12-01 12:47] LABS: APPEARANCE,URINE Clear (CLEAR); BILIRUBIN,URINE Negative (NEGATIVE); BLOOD, URINE Negative Ery/uL (NEGATIVE); COLOR,URINE Yellow (YELLOW); KETONES,URINE Negative (NEGATIVE); LEUKOCYTE ESTERASE ,URINE Trace (NEGATIVE); NITRITE, URINE Negative (NEGATIVE); PH,URINE 5.5 (5.0-8.0); PROTEIN,URINE 30 mg/dl (NEGATIVE); UGLUCOSE Negative (NEGATIVE); UROBILINOGEN,URINE 0.2 EU/dL (0.2)
--- NOTE | 2018-12-01 12:52 | NUR ---
CALLED [facility] FOR PSYCH EVAL, ETA WITHIN THE HOUR
[2018-12-01 12:53] LABS: CALCIUM, SERUM 9.6 mg/dL (8.5-10.1); CARBON DIOXIDE 31 mmol/L (21-32); CHLORIDE 108 mmol/L (98-107); CREATININE 1.1 mg/dL (0.6-1.3); GLUCOSE 104 mg/dL (74-106); POTASSIUM 4.8 mmol/L (3.5-5.1); SODIUM SERUM 142 mmol/L (136-145); UREA NITROGEN, BLOOD 25 mg/dL (7-18)
[2018-12-01 12:53] LABS: BACTERIA,URINE 1+ /HPF (None Seen); RBC,URINE NONE SEEN /HPF (0-2); SQUAMOUS EPITHELIAL CELL,UR Few /HPF (None Seen)
[2018-12-01 12:54] LABS: MUCUS,URINE Many /LPF (None Seen)
[2018-12-01 12:59] LABS: ALANINE AMINOTRANSFERASE 11 U/L (12-78); ALBUMIN 3.3 g/dL (3.4-5.0); ALCOHOL, BLOOD < 3 mg/dL (0-0); ALKALINE PHOSPHATASE 140 U/L (46-116); ASPARTATE AMINOTRANSFERASE 20 U/L (15-37); BILIRUBIN,DIRECT 0.1 mg/dL (0.0-0.2); BILIRUBIN,TOTAL 0.2 mg/dL (0.2-1.0); TOTAL PROTEIN, SERUM 7.4 g/dL (6.4-8.2)
[2018-12-01 13:01] LABS: ACETAMINOPHEN < 10 ug/ml (10-30); SALICYLATE 0.8 mg/dL (2.8-20.0)
--- NOTE | 2018-12-01 14:06 | NUR ---
[facility] FOR GPS BED
--- NOTE | 2018-12-01 14:32 | NUR ---
GPS 218-A
--- NOTE | 2018-12-01 14:56 | NUR ---
REPORT GIVEN TO CHARGE NURSE SARA NEAL FOR KARLEE; PT WILL BE TRANSPORTED VIA W/C WITH EMT
[2018-12-01] MEDS ORDERED: RIVA1.5C7 PO (15:09)
[2018-12-01] MEDS ORDERED: RISP0.253 PO (15:09)
[2018-12-01] MEDS ORDERED: MAGNESIUM HYDROXIDE 30 ML UDC PO PRN (15:30)
[2018-12-01] MEDS ORDERED: ACETAMINOPHEN 325 MG TABLET PO PRN (15:30)
[2018-12-01] MEDS ORDERED: MAG HYDROX/AL HYDROX/SIMETH 30 ML UDC PO PRN (15:30)
--- NOTE | 2018-12-01 15:30 | NUR ---
RN-CO: Paged Dr Dow for admitting orders.
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
[2018-12-01 15:53] VITALS: BP 136/72
[2018-12-01 20:00] VITALS: BP 136/91
[2018-12-01] MEDS: RIVASTIGMINE TARTRATE 1.5 MG CAPSULE PO SCH (20:54)
[2018-12-02 08:00] VITALS: BP 149/80
[2018-12-02 08:32] LABS: ALANINE AMINOTRANSFERASE 9 U/L (12-78); ALBUMIN 3.2 g/dL (3.4-5.0); ALKALINE PHOSPHATASE 119 U/L (46-116); ASPARTATE AMINOTRANSFERASE 22 U/L (15-37); BILIRUBIN,TOTAL 0.5 mg/dL (0.2-1.0); CALCIUM, SERUM 9.3 mg/dL (8.5-10.1); CARBON DIOXIDE 26 mmol/L (21-32); CHLORIDE 108 mmol/L (98-107); CREATININE 0.9 mg/dL (0.6-1.3); GLUCOSE 96 mg/dL (74-106); POTASSIUM 4.6 mmol/L (3.5-5.1); SODIUM SERUM 143 mmol/L (136-145); TOTAL PROTEIN, SERUM 7.3 g/dL (6.4-8.2); UREA NITROGEN, BLOOD 19 mg/dL (7-18)
[2018-12-02] MEDS: RIVASTIGMINE TARTRATE 1.5 MG CAPSULE PO SCH (09:00)
[2018-12-02] MEDS: AMLODIPINE BESYLATE 2.5 MG TABLET PO SCH (09:00)
[2018-12-02 09:06] LABS: CHOLESTEROL 151 mg/dL (<200); HDL CHOLESTEROL 59 mg/dL (40-60); LDL 89 mg/dL (0-99); TRIGLYCERIDES 58 mg/dL (30-150)
[2018-12-02 16:00] VITALS: BP 129/95
[2018-12-02 19:30] VITALS: BP 102/66
[2018-12-02] MEDS ORDERED: risperiDONE 1 MG TABLET PO ONE (22:00)
[2018-12-02] MEDS ORDERED: RIVASTIGMINE TARTRATE 1.5 MG CAPSULE PO ONE (22:00)
[2018-12-02] MEDS: LORAZEPAM 0.5 MG TABLET PO PRN (22:43)
[2018-12-03 08:00] VITALS: BP 124/77
[2018-12-03] MEDS: RIVASTIGMINE TARTRATE 1.5 MG CAPSULE PO SCH ×2 (08:41→20:13)
[2018-12-03] MEDS: AMLODIPINE BESYLATE 2.5 MG TABLET PO SCH (08:42)
[2018-12-03] MEDS: risperiDONE 1 MG TABLET PO SCH ×2 (08:43→20:12)
--- NOTE | 2018-12-03 09:17 | NUR ---
Psychosocial Note: I, Josy Jennings MSW, attest to the patients previous psychosocial information dated 11/23/18. Update On Events leading to Admission and Discharge Plan: Pt has returned to the hospital within two days of her previous discharge date. The current plan is to increase the patient on her medications and discharge her back to home [address] [facility] [address] with her daughter with mental health services to ensure the pts safety. On evaluation, the pt appeared to be anxious and confused, she was in her room pacing around her room looking for her dog Gratiot. Pts insight and judgement is impaired. Pts thought process appears disorganized, confused, and disoriented stating she was at "[facility]" Pt is ambulatory, well-groomed and appropriately dressed. ISAIAS attempted to contact pts daughter Mela [phone] and left a voicemail for callback. ISAIAS will help form a safe and proper discharge in collaboration with daughter and MD.
--- NOTE | 2018-12-03 11:31 | NUR ---
SW received a call from pts daughter Mela [phone] stating that pt is a danger to self once shes home and she is unable to take care of her. Daughter stated that pt refuses to take medications once home and also states that she becomes aggressive and attempts to leave her home. Daughter stated that pt will need placement. SW informed her that pts HMO insurance has to authorize SNF placement and would try to request authorization and refer to a local SNF. SW also informed her that if pts HMO does not authorize then SW will connect with a senior placement agency and attempt to find alterative placement options for pt. Daughter agreed.
--- NOTE | 2018-12-03 14:53 | NUR ---
RN-CP: NOTED PATIENT IS VERY ANXIOUS, BARRICADING HERSELF IN THE ROOM, TEARFUL. PATIENT WAS ENC. TO VERBALIZED FEELINGS AND WAS TAKEN TO THE DAY ROOM TO PARTICIPATE IN ACTIVITIES.
[2018-12-03 16:00] VITALS: BP 117/67
[2018-12-03 19:42] VITALS: BP 153/91
[2018-12-03] MEDS: LORAZEPAM 0.5 MG TABLET PO PRN (20:12)
[2018-12-04 08:00] VITALS: BP 130/66
[2018-12-04] MEDS: RIVASTIGMINE TARTRATE 1.5 MG CAPSULE PO SCH ×2 (09:46→21:28)
[2018-12-04] MEDS: AMLODIPINE BESYLATE 2.5 MG TABLET PO SCH (09:47)
[2018-12-04] MEDS: risperiDONE 1 MG TABLET PO SCH ×2 (09:47→21:28)
--- NOTE | 2018-12-04 10:36 | NUR ---
ISAIAS faxed SNF referral to Jenna, administrative operations coordinator at [facility] Address: [address] [place] [address] for review.
--- NOTE | 2018-12-04 13:12 | NUR ---
UR NOTE: ISAIAS contacted Angelica, Lead children's service supervisor at [facility] [phone] and left voicemail requesting call back for days approved.
[2018-12-04 16:00] VITALS: BP 141/65
--- NOTE | 2018-12-04 17:00 | NUR ---
WANDERING ABOUT TOBIN MOST OF DAY,BUT MINGLING WITH OTHER PT'S.
[2018-12-04 20:13] VITALS: BP 145/57
--- NOTE | 2018-12-05 03:25 | NUR ---
OFFERED SLEEPING MEDICATION, PATIENT REFUSED
[2018-12-05 08:00] VITALS: BP 148/81
[2018-12-05] MEDS: risperiDONE 1 MG TABLET PO SCH ×2 (08:52→21:36)
[2018-12-05] MEDS: RIVASTIGMINE TARTRATE 1.5 MG CAPSULE PO SCH ×2 (08:52→21:36)
[2018-12-05] MEDS: AMLODIPINE BESYLATE 2.5 MG TABLET PO SCH (08:52)
--- NOTE | 2018-12-05 11:54 | NUR ---
UR NOTE: ISAIAS FAXED DAILY REVIEW TO [facility] [phone] for review.
--- NOTE | 2018-12-05 12:06 | NUR ---
ISAIAS faxed referral to [facility] and spoke with Simeon [phone], engineering consultant who stated she would contact pts daughter to provide her with placement options.
--- NOTE | 2018-12-05 15:20 | NUR ---
SW received a call from Simeon, oim consultant at [facility] [phone] stating she attempted to contact daughter and left voicemail for callback.
--- NOTE | 2018-12-05 15:30 | NUR ---
SW attempted to contact pts daughter Mela [phone]/ [phone] and left a voicemail for callback.
[2018-12-05 16:00] VITALS: BP 142/80
[2018-12-05 20:20] VITALS: BP 130/76
[2018-12-06 08:00] VITALS: BP 116/68
[2018-12-06] MEDS: risperiDONE 1 MG TABLET PO SCH ×2 (08:29→20:53)
[2018-12-06] MEDS: RIVASTIGMINE TARTRATE 1.5 MG CAPSULE PO SCH ×2 (08:29→20:53)
[2018-12-06] MEDS: AMLODIPINE BESYLATE 2.5 MG TABLET PO SCH (08:29)
--- NOTE | 2018-12-06 09:38 | NUR ---
SW attempted to contact pts daughter Mela [phone]/ [phone] and left a voicemail for callback.
--- NOTE | 2018-12-06 09:59 | NUR ---
UR NOTE: ISAIAS FAXED DAILY REVIEW TO [facility] [phone] for review.
--- NOTE | 2018-12-06 12:04 | NUR ---
ISAIAS received a call from pts daughter Mela [phone], ISAIAS informed her that pts O has not contacted SW and therefore pt may not be covered or approved for continued hospitalization. ISAIAS encouraged daughter to call Simeon from [facility] and begin looking for alternative placement options for pt. Daughter stated she would call right away. SW also informed her that if pt is discharged and no placement has been identified she would have to take pt home. Daughter agreed but said if she takes pt home and pt becomes erratic she will bring her back to the hospital.
--- NOTE | 2018-12-06 14:22 | NUR ---
ISAIAS received a call from Zakia, account administrator at [facility] Address: [address] [place] [address] informing SW pts daughter went to tour facility and wants to move forward with admission. Zakia requested medication list and Physicians report. ISAIAS will fax to [phone].
[2018-12-06 16:00] VITALS: BP 106/64
--- NOTE | 2018-12-06 22:23 | NUR ---
TYRMONICAFERRED PATIENT TO RM. 326-1, REPORT GIVEN TO SARA NICHOLAS FOR CONTINUITY OF CARE
[2018-12-06 22:30] VITALS: BP 95/61
[2018-12-07] VITALS: BP 115/60
--- NOTE | 2018-12-07 00:21 | NUR ---
ENDORSED TO SARA NICHOLAS THAT FAMILY NEEDS TO BE NOTIFIED ABOUT THE TRANSFER.
--- NOTE | 2018-12-07 00:30 | NUR ---
GPS OVERFLOW RN NOTES CALLED HERNANDEZ CHONG. LEFT A MESSAGE RE PT'S TRANSFER TO ROOM 326-1.
--- NOTE | 2018-12-07 00:43 | NUR ---
ROUND KILN DRAWER NOTES RECEIVED PATIENT FROM GPS. PATIENT IS A/O X 2. PATIENT IS CALM AND COOPERATIVE, DENIES SI/HI. PATIENT HAS NO SIGNS OF RESPIRATORY DISTRESS. NO SIGNS OF SHORTNESS OF BREATH. PATIENT DENIES PAIN. PATIENT HAS SITTER AT BEDSIDE. SAFETY PRECAUTIONS IMPLEMENTED: BED IN LOW POSITION, BED LOCKED, CALL LIGHT WITHIN REACH. WILL CONTINUE TO MONITOR THROUGHOUT THE SHIFT.
[2018-12-07 05:00] VITALS: BP 115/60
--- NOTE | 2018-12-07 07:01 | NUR ---
RN CLOSING PATIENT IS ASLEEP IN BED, EASILY AWAKEN WITH VERBAL STIMULI. NO SIGNS OF RESPIRATORY DISTRESS OR SHORTNESS OF BREATH. SAFETY PRECAUTIONS IMPLEMENTED, CALL LIGHT WITHIN REACH. WILL ENDORSE TO AM SHIFT.
--- NOTE | 2018-12-07 07:05 | NUR ---
RN NOTES PATIENT IN BED ALERT ORIENTED X 2. NO ACUTE DISTRESS NOTED. BREATHING UNLABORED. NO SOB NOTED. SAFETY MEASURES IN PLACE. CALL LIGHT WITHIN REACH. SITTER AT BEDSIDE. WILL CONTINUE TO MONITOR ACCORDINGLY.
--- NOTE | 2018-12-07 08:34 | NUR ---
ISAIAS faxed Physicians Report and clinical information to Zakia, linux systems administrator at [facility] Address: [address] [place] [address] for admission.
--- NOTE | 2018-12-07 08:36 | NUR ---
UR NOTE: ISAIAS FAXED DAILY REVIEW TO [facility] [phone] for review.
[2018-12-07] MEDS: risperiDONE 1 MG TABLET PO SCH ×2 (09:53→20:29)
[2018-12-07] MEDS: RIVASTIGMINE TARTRATE 1.5 MG CAPSULE PO SCH ×2 (09:54→20:29)
[2018-12-07] MEDS: AMLODIPINE BESYLATE 2.5 MG TABLET PO SCH (09:54)
--- NOTE | 2018-12-07 10:48 | NUR ---
UR NOTE: ISAIAS received a call from Janette [phone] aftercare coordinator who stated that pts case has not been assigned and she will be following up with the UR team. Janette stated that she would be contacting ISAIAS once she knew who the UR pillowcase cutter assigned is.
--- NOTE | 2018-12-07 12:00 | NUR ---
SW received a call from Naomi, hospice plan administrator at [facility] Address: [address] [place] [address] stating pt has been accepted to the facility but is waiting for daughter to confirm admission.
--- NOTE | 2018-12-07 12:01 | NUR ---
SW attempted to contact pts daughter Mela [phone]/ [phone] and left a voicemail for callback.
--- NOTE | 2018-12-07 12:21 | NUR ---
ISAIAS received a call from pts daughter Mela [phone] who informed SW that is currently waiting for [facility] to give her the final monthly cost and then she will confirm admission. SW stated that she will contact her on Monday12/10/18 to request update. Daughter agreed.
--- NOTE | 2018-12-07 12:47 | NUR ---
UR NOTE: ISAIAS received a call from SARAH Agosto piano case maker [phone] approving pt 3 days 12/07/18-12/09/18 with review due on Monday12/10/18.
--- NOTE | 2018-12-07 16:50 | NUR ---
MS RN NOTES PATIENT TRANSPORTED TO [facility] PSYCH 220-1 WITH STABLE VITAL SIGNS. ALERT ORIENTED X 2 WITH CONFUSION.AMBULATORY WITH STEADY GAIT. NO ACUTE DISTRESS NOTED. REPORT GIVEN TO VIVIAN RUIZ AT BEDSIDE. ALL BELONGINGS BROUGHT WITH THE PATIENT.
[2018-12-07 20:00] VITALS: BP 135/79
[2018-12-08 08:00] VITALS: BP 123/71
[2018-12-08] MEDS: risperiDONE 1 MG TABLET PO SCH ×2 (09:19→21:21)
[2018-12-08] MEDS: RIVASTIGMINE TARTRATE 1.5 MG CAPSULE PO SCH ×2 (09:19→21:21)
[2018-12-08] MEDS: AMLODIPINE BESYLATE 2.5 MG TABLET PO SCH (09:19)
[2018-12-08 16:00] VITALS: BP 109/59
[2018-12-08 20:00] VITALS: BP 121/68
[2018-12-09 08:00] VITALS: BP 129/68
[2018-12-09] MEDS: AMLODIPINE BESYLATE 2.5 MG TABLET PO SCH (08:56)
[2018-12-09] MEDS: risperiDONE 1 MG TABLET PO SCH ×2 (08:56→21:50)
[2018-12-09] MEDS: RIVASTIGMINE TARTRATE 1.5 MG CAPSULE PO SCH ×2 (08:57→21:50)
[2018-12-09 16:00] VITALS: BP 104/65
[2018-12-09] MEDS: LORAZEPAM 0.5 MG TABLET PO PRN (19:47)
[2018-12-09 20:24] VITALS: BP 119/55
[2018-12-10 08:00] VITALS: BP 123/75
[2018-12-10] MEDS: risperiDONE 1 MG TABLET PO SCH ×2 (08:35→21:18)
[2018-12-10] MEDS: RIVASTIGMINE TARTRATE 1.5 MG CAPSULE PO SCH ×2 (08:36→21:18)
[2018-12-10] MEDS: AMLODIPINE BESYLATE 2.5 MG TABLET PO SCH (08:36)
--- NOTE | 2018-12-10 08:43 | NUR ---
SW attempted to contact pts daughter Mela [phone]/ [phone] and left a voicemail for callback
--- NOTE | 2018-12-10 09:04 | NUR ---
ISAIAS contacted Naomi, grants administrator at [facility] Address: [address] [place] [address] and left voicemail requesting update for admission.
--- NOTE | 2018-12-10 11:22 | NUR ---
DISCHARGE PLANNING: ISAIAS received a call from pts daughter Mela [phone] who was agitated and stated that she was confused regarding pts discharge. Daughter stated that she received a call from Charissa on Monday saying pt was going to stay her 14 days. ISAIAS explained that on Monday12/07/18 the patients rights advocate Shila contacted her to inform her pt was having a probable cause hearing for a 14 day hold. ISAIAS then explained that every pt is given a probable cause hearing when placed on 14 days to upheld the hold. ISAIAS then explained that pt no longer met criteria for continued psychiatric hospitalization and that Dr. Dow has ordered discharge for Monday12/11/18, ISAIAS also informed her on Monday that pts HMO insurance had approved 3 days with a review due on this present day. Daughter stated that due to receiving that phone call she did not get things ready for pt over the weekend and needed more time to get pt moved in. ISAIAS explained that the HMO will not authorize more days due to placement issues. ISAIAS asked daughter how many days more she will need and she stated that she did not know and became verbally aggressive and threatening stating that she will fight anyone in order to prevent pt being discharged. ISAIAS ended the conversation with daughter as she became threatening. Addendum: 12/10/18 at 1136 by ZAFAR ESPARZA ISAIAS informed daughter that she would contact the insurance to inform them daughter needs more time to move pt in.
--- NOTE | 2018-12-10 11:37 | NUR ---
UR NOTE: ISAIAS FAXED DAILY REVIEW TO [facility] OS[facility]ORN [phone] for review.
--- NOTE | 2018-12-10 11:39 | NUR ---
UR NOTE: ISAIAS contacted Vanna Oj, UR wrapper caser [phone] however was unable to leave message as phone kept ringing.
--- NOTE | 2018-12-10 11:40 | NUR ---
UR NOTE: ISAIAS contacted Janette [phone] and left voicemail requesting a callback to verify UR rn case manager Vanna Oj's phone number.
--- NOTE | 2018-12-10 13:01 | NUR ---
UR NOTE: SW received a call from Barbara correctional case records supervisor at [facility] [phone] F:[phone] stating pt is only approved 1 day 12/10/18 and if pt is not discharged tomorrow 12/11/18 they will require a peer to peer or chart review.
--- NOTE | 2018-12-10 13:13 | NUR ---
TREATMENT PLANNING: SW contacted Psychiatrist Dr. Dow and informed him RADHA Campos SENIOR has only authorized 1 more day 12/10/18 with peer to peer review due tomorrow. DR. Dow stated that pt no longer meets criteria and has ordered discharge for tomorrow 12/11/18. Dr. Dow also stated he would contact pts daughter later this afternoon.
--- NOTE | 2018-12-10 13:16 | NUR ---
Social Service Note: Spoke with patient's daughter: Ewa [phone]. She is very angry that her mother cannot stay in the hospital while " they arrange furniture delivery". Her mother has been accepted at [facility] in [place] per daughter. The patient's daughter does not appear to understand acute inpatient criteria for a psychiatric unit. She is using past history and the need for her to coordinate furniture delivery as grounds to extend her stay. Daughter and patient have a very conflictual relationship it seems and promotional advertising assistant reported this. Josy asked Dr Dow to call the daughter per her request and Dr Dow agreed to do this today. Daughter wants mother on long-acting medication but Dr Dow refused this and said he would be " risking his license". Daughter was told by this proposal manager writer and will be told by Josy STATON that she can file an appeal with Medicare tomorrow if she does not want to take her mother home. Daughter made threats to jorge luis the hospital and insurance earlier in the conversation.
--- NOTE | 2018-12-10 14:40 | NUR ---
ISAIAS contact pts daughter Mela [phone] and provided her with [facility]'s phone number and advised her to contact [facility] tomorrow 12/11/18 at 0800 to appeal discharge.
--- NOTE | 2018-12-10 15:46 | NUR ---
ISAIAS contact pts daughter Mela [phone] Dow cancelled discharge order for tomorrow and informed her he is increasing pts current medication and adding Zyprexa. Daughter was grateful and apologized to ISAIAS for her outburst earlier this morning. ISAIAS informed her that she will contact [facility] tomorrow and inform them that pt is still meeting criteria for hospitalization and there has been medication changes. Daughter thanked ISAIAS and stated she is not trying to stale discharge and is moving forward with getting pt moved in to [facility].
[2018-12-10 16:00] VITALS: BP 100/68
[2018-12-10] MEDS: DIVALPROEX SODIUM 250 MG TABLET.DR PO SCH ×2 (16:28→21:18)
[2018-12-10 19:57] VITALS: BP 124/74
[2018-12-11] MEDS: LORAZEPAM 0.5 MG TABLET PO PRN ×2 (00:48→20:01)
[2018-12-11 08:00] VITALS: BP 137/78
--- NOTE | 2018-12-11 08:25 | NUR ---
UR NOTE: ISAIAS left verbal clinical review via voicemail with Barbara lead case manager at [facility] [phone] for review.
[2018-12-11] MEDS: RIVASTIGMINE TARTRATE 1.5 MG CAPSULE PO SCH ×2 (08:42→21:42)
[2018-12-11] MEDS: AMLODIPINE BESYLATE 2.5 MG TABLET PO SCH (08:42)
[2018-12-11] MEDS: DIVALPROEX SODIUM 250 MG TABLET.DR PO SCH (08:42)
[2018-12-11] MEDS: risperiDONE 1 MG TABLET PO SCH ×2 (08:42→21:41)
--- NOTE | 2018-12-11 15:34 | NUR ---
UR NOTE: ISAIAS contacted Barbara protective services case worker at [facility] [phone] and left voicemail requesting update on clinical review.
[2018-12-11 16:00] VITALS: BP 129/83
[2018-12-11 20:24] VITALS: BP 127/73
[2018-12-12 08:00] VITALS: BP 148/67
[2018-12-12] MEDS: risperiDONE 1 MG TABLET PO SCH ×2 (08:15→20:21)
[2018-12-12] MEDS: RIVASTIGMINE TARTRATE 1.5 MG CAPSULE PO SCH ×2 (08:15→20:21)
[2018-12-12] MEDS: AMLODIPINE BESYLATE 2.5 MG TABLET PO SCH (08:15)
[2018-12-12] MEDS: DIVALPROEX SODIUM 250 MG TABLET.DR PO SCH ×3 (08:15→17:30)
--- NOTE | 2018-12-12 08:27 | NUR ---
UR NOTE: SW received a voicemail from Barbara onsite case manager at [employer] [facility] [phone] F:[phone] stating pt has been authorized 3 days 12/11/18, 12/12/18 and 12/13/18 with review due on 12/13/18.
--- NOTE | 2018-12-12 08:30 | NUR ---
SW contact pts daughter Mela [phone] and left a voicemail informing her pts HMO has authorized 3 days until the 12/13/18. SW also asked for an update on pts moving to [facility] and if daughter will have pts belongings moved in by the 12/13/18.
--- NOTE | 2018-12-12 09:27 | NUR ---
ISAIAS contacted Naomi, property administrator at [facility] Address: [address] [place] [address] and left voicemail requesting update for admission.
--- NOTE | 2018-12-12 12:55 | NUR ---
SW contact pts daughter Mela [phone] and left a voicemail informing her Dr. Dow has ordered D/C for Friday December 14, 2018.
--- NOTE | 2018-12-12 12:59 | NUR ---
SW received a call from pts daughter Mela [phone] stating she was waiting for [facility] to give her the keys and that she will be going this afternoon to move pts belongings in. Daughter will be picking pt up on Monday12/14/18 at 12:00pm to transport to [facility].
[2018-12-12 16:00] VITALS: BP 136/58
[2018-12-12 20:00] VITALS: BP 99/52
[2018-12-13 08:00] VITALS: BP 117/66
[2018-12-13 08:08] LABS: CALCIUM, SERUM 9.7 mg/dL (8.5-10.1); CARBON DIOXIDE 29 mmol/L (21-32); CHLORIDE 104 mmol/L (98-107); CREATININE 0.9 mg/dL (0.6-1.3); GLUCOSE 96 mg/dL (74-106); POTASSIUM 4.1 mmol/L (3.5-5.1); SODIUM SERUM 140 mmol/L (136-145); UREA NITROGEN, BLOOD 16 mg/dL (7-18)
[2018-12-13] MEDS: risperiDONE 1 MG TABLET PO SCH ×2 (08:27→21:27)
[2018-12-13] MEDS: DIVALPROEX SODIUM 250 MG TABLET.DR PO SCH ×3 (08:27→16:49)
[2018-12-13] MEDS: AMLODIPINE BESYLATE 2.5 MG TABLET PO SCH (08:27)
[2018-12-13] MEDS: RIVASTIGMINE TARTRATE 1.5 MG CAPSULE PO SCH ×2 (08:27→21:28)
--- NOTE | 2018-12-13 10:46 | NUR ---
ISAIAS received a call from Naomi, wide area network administrator at [facility] Address: [address] [place] [address] stating pt was discharging on this present day. ISAIAS informed her that per ISAIAS's conversation with pts daughter yesterday 12/12/18 daughter stated she would be picking pt up Monday12/14/18.
--- NOTE | 2018-12-13 10:48 | NUR ---
SW contact pts daughter Mela [phone] and left a voicemail requesting clarification on discharge pear picker day.
--- NOTE | 2018-12-13 10:50 | NUR ---
UR NOTE: ISAIAS contacted Barbara showcase maker at [facility] [phone] and informed her pt is discharging either on this present day or tomorrow Monday12/14/18. ISAIAS stated she is waiting for daughter to contact ISAIAS to clarify discharge day. Barbara stated that pt is covered today and will wait for discharge summary.
[2018-12-13 16:00] VITALS: BP 100/59
[2018-12-13 20:00] VITALS: BP 101/60
[2018-12-14 08:00] VITALS: BP 130/69
[2018-12-14 09:13] VITALS: BP 130/69
[2018-12-14] MEDS: DIVALPROEX SODIUM 250 MG TABLET.DR PO SCH ×2 (09:13→13:00)
[2018-12-14] MEDS: AMLODIPINE BESYLATE 2.5 MG TABLET PO SCH (09:13)
[2018-12-14] MEDS: RIVASTIGMINE TARTRATE 1.5 MG CAPSULE PO SCH (09:13)
[2018-12-14] MEDS: risperiDONE 1 MG TABLET PO SCH (09:14)
--- NOTE | 2018-12-14 09:48 | NUR ---
DR. RICHARDS GAVE AN ORDER TO D/C HOLD AND D/C TO [facility] AND TO FOLLOW UP WITH PSYCH AND MEDICAL DOCTORS.
--- NOTE | 2018-12-14 14:37 | NUR ---
DISCHARGE NOTE: Pt will be discharged at 3:30pm via private vehicle to [facility] Address: [address] [place] [address] . Pts daughter Mela [phone] will transport pt. Pts mood is euthymic with congruent affect. Pt denied suicidal/homicidal ideation and denied visual/auditory hallucinations. Pt will be under the care of Psychiatrist: Dr. Brennan Avila Address: [address] [place] [address] and Integrated Specialist: Dr. Bethel Esteban [address] [address] [phone]. The multidisciplinary exitcare form was done, printed, signed, and given to the patient.
--- NOTE | 2018-12-14 14:59 | NUR ---
GPS/RN PT DISCHARGE TO [facility] WITH HER DAUGHTER TRANSPORTING HER. PT IS AMBULATORY NO SI OR HI AT THE TIME OF DISCHARGE REFUSED PICTURES AND TO SIGN D/C PAPERORK. PRESCRIPTIONS PROVIDED AND FAXED TO [facility].PROPERTY RETURNED AND SIGNED BY PT'S DAUGHTER.
--- NOTE | 2018-12-17 09:16 | NUR ---
UR NOTE: ISAIAS completed discharge summary via voicemail with Barbara special education case manager at [facility] [phone] F:[phone]
== END 2018-12-14 15:00 | DRG 885 ==
LOC: ER 11:55 → GPS 14:36 → MED 12-06 22:09 → GPSOV 12-07 00:09 → GPS 12-07 17:10
PROVIDERS: ADMIT Psychiatry & Neurology Psychiatry; ATTEND Psychiatry & Neurology Psychiatry
DX: F29 Unspecified psychosis not due to a substance or known physiological condition (principal); I11.0 Hypertensive heart disease with heart failure; N17.9 Acute kidney failure, unspecified; I50.9 Heart failure, unspecified; F03.90 Unspecified dementia, unspecified severity, without behavioral disturbance, psychotic disturbance, mood disturbance, and anxiety; Z95.0 Presence of cardiac pacemaker; Z73.6 Limitation of activities due to disability; Z88.0 Allergy status to penicillin; Z79.899 Other long term (current) drug therapy
CPT/HCPCS: 36415; 71045-TC; 80048-TC; 80053-TC; 80061-TC; 80076-TC; 80305; 81000-TC; 85025-TC; 87081-TC; G0378; G0480